=== PATIENT | female | born 1990 | race Caucasian/White ===

== ENCOUNTER 2017-01-11 14:53 | Emergency (ER) | payer OTHER ==
[2017-01-11 15:22] VITALS: BP 148/87
[2017-01-11] MEDS ORDERED: HYDROcodone/ACETAMIN 5-325 MG* 1 TAB PO ONE (16:15)
--- NOTE | 2017-01-11 16:15 | UC ---
[facility] HPI - HPI Summary HPI Summary: left side of mouth hurts where she had her wisdom teeth removed - History of Current Complaint Chief Complaint: UCDentalProblem Stated Complaint: GUM PAIN Time Seen by Provider: 01/11/17 16:04 Hx Obtained From: Patient Hx Last Menstrual Period: one month ago ?: No Onset/Duration: Sudden Onset, Lasting Days, Still Present Severity: Moderate Aggravating: Chewing Alleviating: Nothing Related History: Other - recent dental surgery - Allergies/Home Medications Allergies/Adverse Reactions: Allergies Allergy/AdvReac Type Severity Reaction Status Date / Time Tramadol Allergy Hives Verified 01/11/17 15:22 PMH/Surg Hx/FS Hx/Imm Hx Previously Healthy: Yes - Surgical History Surgical History: None - Family History Known Family History: Positive: None - Social History Occupation: Unemployed Lives: With Family Alcohol Use: None Substance Use Type: None Smoking Status (MU): Never Smoked Tobacco Review of Systems Constitutional: Negative Skin: Negative Eyes: Negative ENT: Dental Pain Respiratory: Negative Cardiovascular: Negative Gastrointestinal: Negative Genitourinary: Negative Motor: Negative Neurovascular: Negative Musculoskeletal: Negative Neurological: Negative Psychological: Negative All Other Systems Reviewed And Are Negative: Yes Physical Exam Triage Information Reviewed: Yes Appearance: Well-Appearing, No Pain Distress, Well-Nourished Vital Signs: Initial Vital Signs Temp 98.7 F 01/11/17 15:18 Pulse 69 01/11/17 15:18 Resp 18 01/11/17 15:18 BP 148/87 01/11/17 15:18 Pulse Ox 100 01/11/17 15:18 Vital Signs Reviewed: Yes Eye Exam: Normal Eyes: Positive: Conjunctiva Clear ENT Exam: Normal ENT: Positive: Normal ENT inspection, Hearing grossly normal, Pharynx normal, TMs normal. Negative: Nasal congestion, Nasal drainage, Tonsillar swelling, Tonsillar exudate, Trismus, Muffled/hoarse voice Dental Exam: Other Dental: Positive: Other: - blood clots in posterior lower extraction site, some swelling no airway comprimise or encrochment Neck exam: Normal Neck: Positive: Supple, Nontender, No Lymphadenopathy Respiratory Exam: Normal Respiratory: Positive: Chest non-tender, Lungs clear, Normal breath sounds, No respiratory distress, No accessory muscle use Cardiovascular Exam: Normal Cardiovascular: Positive: RRR, No Murmur, Pulses Normal, Brisk Capillary Refill Musculoskeletal Exam: Normal Musculoskeletal: Positive: Strength Intact, ROM Intact Neurological Exam: Normal Neurological: Positive: Alert, Muscle Tone Normal Psychological Exam: Normal Skin Exam: Normal Dental Complaint Course/Dx - Course Course Of Treatment: pain med soft foods follow with dentist - Differential Dx/Diagnosis Differential Diagnosis/Dx: Dental Abscess, Odontogenic Pain, Peridontic Disease , Peritonsillar Abcess, Post Extraction Pain Provider Diagnoses: Post extraction pain left lower jaw, high blood pressure with hx of hypertension Discharge - Discharge Plan Condition: Stable Disposition: HOME Prescriptions: Hydrocodone-Acetaminophen [Hydrocodone/Acetaminophen 5-325 mg] 1 tab PO Q6H PRN #12 tab MDD 4 PRN Reason: Pain Patient Education Materials: Hypertension (ED), Toothache (ED), Ice Pack Application (ED), Tooth Extraction (ED) Forms: *Work Release Referrals: [facility] [place] [facility]FERR[facility] [Outside] - 2 Weeks Additional Instructions: Follow with dentist on Thursday as planned
== END 2017-01-11 16:33 | disposition home or self-care (01) ==
LOC: UCEAST 14:53
DX: G89.18 Other acute postprocedural pain (principal); R68.84 Jaw pain; R03.0 Elevated blood-pressure reading, without diagnosis of hypertension; Z88.5 Allergy status to narcotic agent
CPT/HCPCS: 99212; G0463